=== PATIENT | female | born 1970 | race Caucasian/White ===

== ENCOUNTER → 2021-01-22 | Outpatient (CLI) | payer OTHER, MEDICAID ==
--- NOTE | 2021-01-22 11:41 | REP ---
INDICATION: ACHILLES BURSITIS OF LEFT LOWER EXTREMITY COMPARISON: None. TECHNIQUE: Axial and lateral views of the left calcaneus FINDINGS: Calcaneus, joint spaces, and surrounding osseous structures appear normal. Surrounding soft tissues are unremarkable. No soft tissue calcifications are identified. IMPRESSION: Essentially normal evaluation of the calcaneus and surrounding soft tissues.. <Electronically signed by Harry Wilde > 01/22/21 [id number]
--- NOTE | 2021-01-22 11:53 | REP ---
INDICATION: ACHILLES BURSITIS OF LEFT LOWER EXTREMITY. COMPARISON: None. TECHNIQUE: Four views FINDINGS: The joint spaces are symmetric and relatively well maintained. There is no acute fracture or destructive osseous lesion. There is a minimal plantar calcaneal heel spur. IMPRESSION: No acute abnormality is noted. Findings as described above. If Achilles tendinitis or tendinopathy/tendinosis is of clinical concern then consider follow-up with an MRI. <Electronically signed by Tyrone Corbett > 01/22/21 [id number]
[2021-01-22 13:24] LABS: BASO % 0.6 % (0.0-1.0); EOS # 0.1 10^3/uL (0.0-0.5); EOS % 2.2 % (0.0-3.0); HEMATOCRIT 41.2 % (36.0-47.0); HEMOGLOBIN 13.2 g/dl (12.0-15.5); LYMPH # 1.4 10^3/uL (1.5-5.0); LYMPH % 25.3 % (24.0-44.0); MEAN CORPUSCULAR HEMOGLOBIN 27.7 pg (27.0-33.0); MEAN CORPUSCULAR VOLUME 86.6 fl (80.0-96.0); MONO # 0.4 10^3/uL (0.0-0.8); MONO % 8.1 % (2.0-8.0); NEUTROPHILS # 3.4 10^3/uL (1.5-8.5); NEUTROPHILS % 63.4 % (36.0-66.0); PLATELET COUNT, AUTOMATED 163 10^3/uL (150-450); RED BLOOD COUNT 4.76 10^6/uL (4.00-5.40); WHITE BLOOD COUNT 5.4 10^3/uL (4.0-10.0)
[2021-01-22 13:27] LABS: APPEARANCE, URINE CLEAR (CLEAR); BACTERIA, URINE AUTO NEGATIVE (NEGATIVE); BILIRUBIN, URINE AUTO NEGATIVE (NEGATIVE); BLOOD, URINE BLOOD NEGATIVE (NEGATIVE); COLOR, URINE YELLOW (YELLOW); GLUCOSE, URINE (UA) AUTO NEGATIVE (NEGATIVE); KETONE, URINE AUTO NEGATIVE (NEGATIVE); LEUKOCYTE ESTERASE, URINE AUTO NEGATIVE (NEGATIVE); NITRITE, URINE AUTO NEGATIVE (NEGATIVE); PROTEIN, URINE AUTO NEGATIVE (NEGATIVE); RBC, URINE AUTO 0 /HPF (0-3); SPECIFIC GRAVITY URINE AUTO 1.006 (1.002-1.035); SQUAMOUS EPITHELIAL CELL UR AU 0 /HPF (0-6); UROBILINOGEN, URINE AUTO 0.2 mg/dL (0.0-2.0); WBC, URINE AUTO 0 /HPF (0-3)
[2021-01-22 14:49] LABS: ALT/SGPT 85 U/L (12-78); BILIRUBIN,TOTAL 0.5 MG/DL (0.2-1.0); BLOOD UREA NITROGEN 5 MG/DL (7-18); CALCIUM LEVEL 10.1 MG/DL (8.5-10.1); CARBON DIOXIDE LEVEL 26 MEQ/L (21-32); CHLORIDE LEVEL 110 MEQ/L (98-107); CHOLESTEROL LEVEL 225 MG/DL (<200); CREATININE FOR GFR 0.62 MG/DL (0.55-1.30); FREE T4 0.77 NG/DL (0.76-1.46); GLOMERULAR FILTRATION RATE > 60.0 (>51); GLUCOSE, FASTING 98 MG/DL (70-100); HDL CHOLESTEROL 50 MG/DL (>40); LDL CHOLESTEROL 152 MG/DL (<100); NON-HDL-C 175 MG/DL; POTASSIUM SERUM 4.3 MEQ/L (3.5-5.1); SODIUM LEVEL 141 MEQ/L (136-145); TRIGLYCERIDES LEVEL 114 MG/DL (<150)
[2021-01-22 15:11] LABS: HEMOGLOBIN A1c 5.8 %
== END ==
LOC: M PLALAB 10:38
PROVIDERS: ATTEND Physician Assistant Medical
DX: Z86.19 Personal history of other infectious and parasitic diseases (principal); Z13.1 Encounter for screening for diabetes mellitus; E03.9 Hypothyroidism, unspecified; M77.32 Calcaneal spur, left foot

== ENCOUNTER → 2021-02-14 | Outpatient (CLI) | payer OTHER ==
--- NOTE | 2021-02-14 14:17 | REPMRS ---
Patient History The patient states she has not had a clinical breast exam in over a year. Family history of endometrial cancer at age 22 in mother, colorectal cancer in paternal grandmother, ovarian cancer in paternal aunt, endometrial cancer in paternal aunt. Patient states no breast complaints today. Patient has signed MRS History Sheet. Digital Woman Screen Mammo: February 14, 2021 - Exam #: [id number] Bilateral CC and MLO view(s) were taken. Technologist: Marcella Jimenez, Technologist Prior study comparison: July 10, 2010, bilateral digital mammo screening bilat, performed at [facility]. June 07, 2009, digital mammo diagnostic bilateral, performed at [facility]. FINDINGS: There are scattered fibroglandular densities. The Volpara volumetric breast density category is:B. There has been no change in the appearance of the mammogram from the prior studies. There is a mild amount of scattered fibroglandular density which is fairly symmetric. There is no interval development of dominant mass, architectural distortion, or grouped microcalcification suggestive of malignancy. 3-D tomosynthesis shows no additional findings. Assessment: BI-RADS/ACR category 1 mammogram. Negative Mammogram. Recommendation Routine screening mammogram of both breasts in 1 year (for women over age 40). This patient's [facility] Lifetime Breast Cancer Risk is estimated at 9.0 %. This mammogram was interpreted with the aid of an FDA-approved computer-aided dectection system. Electronically Signed By: Kade Goode MD 02/14/21 [id number]
== END ==
LOC: M WHC 13:13
PROVIDERS: ATTEND Physician Assistant Medical
DX: Z12.31 Encounter for screening mammogram for malignant neoplasm of breast (principal); Z80.49 Family history of malignant neoplasm of other genital organs; Z80.8 Family history of malignant neoplasm of other organs or systems

== ENCOUNTER → 2021-03-01 | Outpatient (CLI) | payer OTHER ==
--- NOTE | 2021-03-01 15:10 | REP ---
INDICATION: ACHILLES TENDINITIS, LEFT LEG. COMPARISON: None. TECHNIQUE: Sagittal T2 fat suppressed and proton density. Coronal proton density, STIR and fat suppressed proton density. Axial fat suppressed proton density and T1. FINDINGS: There is mild focal enlargement of the distal Achilles tendon measuring 8 mm in its greatest AP dimension and 1.7 cm in its greatest with. Just proximal to this the Achilles tendon measures 5 mm in its AP dimension and 1.2 cm in with. No abnormal signal is seen within the Achilles tendon. The soft tissues surrounding the Achilles tendon are normal. The remainder of the imaged flexor and extensor tendons appear to be intact and of normal appearing low signal throughout. The intrinsic foot ligaments appear to be intact and of normal appearing low signal throughout. The marrow signal is within normal limits. The plantar soft tissues are within normal limits. The subtalar joints are within normal limits. There is no evidence of a joint effusion. The chondral surfaces are relatively smooth. There is no evidence of a mass or mass effect. IMPRESSION: Likely a small focal area of fibrosis involving the distal Achilles tendon as described above. There is no evidence of a tear. <Electronically signed by Tyrone Corbett > 03/01/21 [id number]
== END ==
LOC: M PLAIMG 12:35
PROVIDERS: ATTEND Physician Assistant Medical
DX: M76.62 Achilles tendinitis, left leg (principal)

== ENCOUNTER → 2021-03-06 | Outpatient (CLI) | payer OTHER ==
[2021-03-06 14:02] LABS: INR 0.98; PROTHROMBIN TIME 13.4 SECONDS (12.7-14.5)
[2021-03-06 14:03] LABS: PARTIAL THROMBOPLASTIN TIME 30.3 SECONDS (25.9-37.0)
[2021-03-06 14:32] LABS: HEPATITIS C VIRUS ABY INDEX 0.1 INDEX (<0.8)
[2021-03-06 14:33] LABS: HEPATITIS A ANTIBODY IGM NEGATIVE (NEGATIVE)
[2021-03-06 19:19] LABS: HEPATITIS B SURFACE ANTIGEN NEGATIVE (NEGATIVE)
== END ==
LOC: M PLALAB 09:30
PROVIDERS: ATTEND Physician Assistant Medical
DX: R79.89 Other specified abnormal findings of blood chemistry (principal); E03.9 Hypothyroidism, unspecified

== ENCOUNTER → 2021-03-16 | Outpatient (CLI) | payer OTHER ==
--- NOTE | 2021-03-16 09:52 | REP ---
INDICATION: ELEVATED LFT'S. FINDINGS: Multiple ultrasonographic images of the liver show diffuse increase echoes throughout the hepatic parenchyma without evidence of a mass or ductal dilatation. The maximal hepatic dimension at the midclavicular line is 21.4 cm. The common bile duct measures between 6 and 7 mm in its greatest transverse dimension. Multiple ultrasonographic images of the gallbladder show multiple echogenic foci within the gallbladder lumen which casts acoustic shadows. There is no gallbladder wall thickening or pericholecystic edema. Images of the pancreatic region show no gross abnormality. The imaged portion of the right kidney is unremarkable. IMPRESSION: Hepatomegaly with fatty infiltration. Cholelithiasis. Accredited by the [employer] in General Ultrasound. <Electronically signed by Tyrone Corbett > 03/16/21 [id number]
== END ==
LOC: M RAD 07:35
PROVIDERS: ATTEND Physician Assistant Medical
DX: R79.89 Other specified abnormal findings of blood chemistry (principal); K76.0 Fatty (change of) liver, not elsewhere classified; K80.20 Calculus of gallbladder without cholecystitis without obstruction

== ENCOUNTER → 2021-03-20 | Outpatient (CLI) | payer OTHER ==
[2021-03-22 14:09] LABS: ANA (HEP2) Negative (.); ANTI-MITOCHONDRIAL ANTIBODY <20.0 Units (0.0-20.0); ANTINUCLEAR ANTIBODIES DIRECT Negative (Negative); TRANSFERRIN 325 mg/dL (192-364)
== END ==
LOC: M PLALAB 08:17
PROVIDERS: ATTEND Physician Assistant Medical
DX: K75.81 Nonalcoholic steatohepatitis (NASH) (principal)

== ENCOUNTER → 2021-04-27 | Outpatient (CLI) | payer OTHER | LOC: M LAB 06:25 | PROVIDERS: ATTEND Surgery | DX: R73.03 Prediabetes (principal) ==

== ENCOUNTER → 2021-05-02 | Outpatient (REF) | payer OTHER, MEDICAID | LOC: M SFHCWAGY 14:05 | PROVIDERS: ATTEND Physician Assistant Medical | DX: B07.9 Viral wart, unspecified (principal) ==

== ENCOUNTER → 2021-05-07 | Outpatient (CLI) | payer OTHER, MEDICAID ==
[2021-05-07 12:32] LABS: FREE T4 0.82 NG/DL (0.76-1.46); THYROID STIMULATING HORMONE 6.19 uIU/ML (0.358-3.740)
== END ==
LOC: M PLALAB 09:10
PROVIDERS: ATTEND Physician Assistant Medical
DX: E03.9 Hypothyroidism, unspecified (principal)

== ENCOUNTER → 2021-06-15 | Outpatient (CLI) | payer MEDICAID, OTHER ==
[~2021-06-15] MED LIST: ALBU8.5H; EPIN0.3I11; GABA600T4; LEVO50TA5; OMEP-218; TIZA2CAP; TRAM50TA2
== END ==
LOC: M LABSMTC 09:27
PROVIDERS: ATTEND Anesthesiology
DX: Z01.812 Encounter for preprocedural laboratory examination (principal); Z20.822 Contact with and (suspected) exposure to COVID-19

== ENCOUNTER 2021-06-20 06:43 | Day surgery (SDC) | payer OTHER ==
[~2021-06-20] VITALS: Ht 162.6 cm; Wt 94.3 kg
[~2021-06-20 06:43] MED LIST changes: +OMEP-173; -OMEP-218
[2021-06-20] MEDS ORDERED: propofoL 500 MG/50 ML VIAL As Ordered ONE (07:37)
[2021-06-20] MEDS ORDERED: fentaNYL 100 MCG/2 ML INJECTION As Ordered ONE (07:37)
[2021-06-20] MEDS ORDERED: LIDOCAINE 2% 100MG/5ML SDV (FOR ANES.) As Ordered ONE (07:37)
[2021-06-20] MEDS ORDERED: NS 1,000 ML IV ONE (07:55)
[2021-06-20 08:31] VITALS: BP 140/77
== END 2021-06-20 08:33 | disposition home or self-care (01) ==
LOC: M OPP 06:43
PROVIDERS: ATTEND Internal Medicine Gastroenterology
DX: Z12.11 Encounter for screening for malignant neoplasm of colon (principal); K64.0 First degree hemorrhoids; R12 Heartburn; E66.9 Obesity, unspecified; E03.9 Hypothyroidism, unspecified; Z88.6 Allergy status to analgesic agent; Z88.5 Allergy status to narcotic agent; Z88.1 Allergy status to other antibiotic agents; Z79.899 Other long term (current) drug therapy
CPT/HCPCS: 43239; 45378; 88305; J3010

== ENCOUNTER → 2021-07-10 | Outpatient (CLI) | payer OTHER ==
[~2021-07-10] MED LIST changes: -OMEP-173; +OMEP-218
[2021-07-10 14:14] LABS: FREE T4 0.95 NG/DL (0.76-1.46); THYROID STIMULATING HORMONE 3.45 uIU/ML (0.358-3.740)
== END ==
LOC: M PLALAB 11:04
PROVIDERS: ATTEND Physician Assistant Medical
DX: E03.9 Hypothyroidism, unspecified (principal)

== ENCOUNTER → 2021-08-16 | Outpatient (REF) | payer OTHER, MEDICAID ==
[~2021-08-16] MED LIST changes: +OMEP-173; -OMEP-218
== END ==
LOC: M SFHCWAGY 15:08
PROVIDERS: ATTEND Obstetrics & Gynecology
DX: Z12.4 Encounter for screening for malignant neoplasm of cervix (principal)

== ENCOUNTER → 2021-08-17 | Outpatient (CLI) | payer OTHER, MEDICAID | LOC: M WHC 07:55 | PROVIDERS: ATTEND Obstetrics & Gynecology | DX: N83.202 Unspecified ovarian cyst, left side (principal) ==

== ENCOUNTER → 2021-10-12 | Outpatient (CLI) | payer OTHER, MEDICAID ==
[2021-10-12 14:16] LABS: FREE T4 1.33 NG/DL (0.76-1.46); THYROID STIMULATING HORMONE 0.113 uIU/ML (0.358-3.740)
== END ==
LOC: M PLALAB 11:07
PROVIDERS: ATTEND Physician Assistant Medical
DX: E03.9 Hypothyroidism, unspecified (principal)

== ENCOUNTER 2021-10-16 17:35 | Emergency (ER) | payer MEDICAID, OTHER ==
[~2021-10-16] VITALS: Ht 162.6 cm; Wt 94.1 kg
[2021-10-16] MEDS ORDERED: AMLO1TAB24 (17:51)
[2021-10-16] MEDS ORDERED: NIFEdipine 10 MG CAP PO ONE (19:05)
[2021-10-16] MEDS ORDERED: METOCLOPRAMIDE 10MG TAB PO ONE (19:15)
[2021-10-16 19:22] LABS: BASO % 0.3 % (0.0-1.0); EOS # 0.1 10^3/uL (0.0-0.5); EOS % 1.9 % (0.0-3.0); HEMOGLOBIN 14.3 g/dl (12.0-15.5); LYMPH # 2.1 10^3/uL (1.5-5.0); LYMPH % 29.4 % (24.0-44.0); MEAN CORPUSCULAR HEMOGLOBIN 27.2 pg (27.0-33.0); MEAN CORPUSCULAR HGB CONC 33.3 g/dl (32.0-36.5); MEAN CORPUSCULAR VOLUME 81.9 fl (80.0-96.0); MONO # 0.6 10^3/uL (0.0-0.8); MONO % 8.4 % (2.0-8.0); NEUTROPHILS # 4.2 10^3/uL (1.5-8.5); NEUTROPHILS % 59.9 % (36.0-66.0); PLATELET COUNT, AUTOMATED 188 10^3/uL (150-450); RED BLOOD COUNT 5.25 10^6/uL (4.00-5.40)
[2021-10-16 19:50] LABS: CK-MB VALUE MASS 1.3 NG/ML (<3.6); MB/CK RELATIVE INDEX 2.45 (< OR =4)
[2021-10-16 19:51] LABS: ALBUMIN 4.4 GM/DL (3.2-5.2); ALT/SGPT 78 U/L (12-78); BILIRUBIN,TOTAL 0.5 MG/DL (0.2-1.0); BLOOD UREA NITROGEN 8 MG/DL (7-18); CALCIUM LEVEL 10.4 MG/DL (8.5-10.1); CARBON DIOXIDE LEVEL 28 MEQ/L (21-32); CHLORIDE LEVEL 111 MEQ/L (98-107); CREATININE FOR GFR 0.65 MG/DL (0.55-1.30); GLOMERULAR FILTRATION RATE > 60.0 (>51); GLUCOSE, FASTING 105 MG/DL (70-100); POTASSIUM SERUM 4.1 MEQ/L (3.5-5.1); SODIUM LEVEL 142 MEQ/L (136-145); TOTAL PROTEIN 7.4 GM/DL (6.4-8.2)
[2021-10-16 20:30] VITALS: BP 162/74
== END 2021-10-16 20:41 | disposition home or self-care (01) ==
LOC: M ED 17:35
DX: I10 Essential (primary) hypertension (principal); E07.9 Disorder of thyroid, unspecified; K58.9 Irritable bowel syndrome, unspecified; Z79.899 Other long term (current) drug therapy; Z79.890 Hormone replacement therapy; Z88.5 Allergy status to narcotic agent; Z88.8 Allergy status to other drugs, medicaments and biological substances; J30.89 Other allergic rhinitis

== ENCOUNTER → 2021-10-24 | Outpatient (CLI) | payer OTHER ==
[~2021-10-24] MED LIST changes: +AMLO1TAB24
[2021-10-24 14:41] LABS: BLOOD UREA NITROGEN 12 MG/DL (7-18); CALCIUM LEVEL 10.4 MG/DL (8.5-10.1); CARBON DIOXIDE LEVEL 30 MEQ/L (21-32); CHLORIDE LEVEL 109 MEQ/L (98-107); CHOLESTEROL LEVEL 209 MG/DL (<200); CHOLESTEROL RISK RATIO 4.543 (<5); CREATININE FOR GFR 0.74 MG/DL (0.55-1.30); GLOMERULAR FILTRATION RATE > 60.0 (>51); GLUCOSE, FASTING 92 MG/DL (70-100); HDL CHOLESTEROL 46 MG/DL (>40); LDL CHOLESTEROL 140 MG/DL (<100); NON-HDL-C 163 MG/DL; POTASSIUM SERUM 3.9 MEQ/L (3.5-5.1); SODIUM LEVEL 143 MEQ/L (136-145); TRIGLYCERIDES LEVEL 117 MG/DL (<150)
== END ==
LOC: M PLALAB 10:33
PROVIDERS: ATTEND Physician Assistant Medical
DX: Z13.220 Encounter for screening for lipoid disorders (principal); I16.0 Hypertensive urgency

== ENCOUNTER → 2021-11-16 | Outpatient (CLI) | payer OTHER | LOC: M RAD 06:31 | PROVIDERS: ATTEND Physician Assistant Medical | DX: I16.0 Hypertensive urgency (principal); N28.1 Cyst of kidney, acquired ==

== ENCOUNTER → 2021-12-10 | Outpatient (REF) | payer OTHER ==
[2021-12-13 20:08] LABS: METANEPHRINE TOTAL URINE 71 ug/L (Undefined); METANEPHRINE URINE 117 ug/24 hr (36-209); NORMETANEPHRINE TOTAL URINE 248 ug/L (Undefined); NORMETANEPHRINE URINE 409 ug/24 hr (131-612)
== END ==
LOC: M SFHCWAGY 11:36
PROVIDERS: ATTEND Physician Assistant Medical
DX: R09.89 Other specified symptoms and signs involving the circulatory and respiratory systems (principal)

== ENCOUNTER → 2022-01-23 | Outpatient (CLI) | payer OTHER, MEDICAID ==
[2022-01-23 10:12] LABS: BASO % 0.4 % (0.0-1.0); EOS # 0.2 10^3/uL (0.0-0.5); EOS % 2.6 % (0.0-3.0); HEMATOCRIT 39.9 % (36.0-47.0); HEMOGLOBIN 13.4 g/dl (12.0-15.5); LYMPH # 1.8 10^3/uL (1.5-5.0); LYMPH % 23.2 % (24.0-44.0); MEAN CORPUSCULAR HEMOGLOBIN 27.4 pg (27.0-33.0); MEAN CORPUSCULAR HGB CONC 33.6 g/dl (32.0-36.5); MEAN CORPUSCULAR VOLUME 81.6 fl (80.0-96.0); MONO # 0.6 10^3/uL (0.0-0.8); NEUTROPHILS % 65.5 % (36.0-66.0); PLATELET COUNT, AUTOMATED 247 10^3/uL (150-450); RED BLOOD COUNT 4.89 10^6/uL (4.00-5.40); WHITE BLOOD COUNT 7.7 10^3/uL (4.0-10.0)
[2022-01-23 10:30] LABS: HEMOGLOBIN A1c 5.2 %
[2022-01-23 10:43] LABS: ALT/SGPT 41 U/L (12-78); BILIRUBIN,TOTAL 0.5 MG/DL (0.2-1.0); BLOOD UREA NITROGEN 10 MG/DL (7-18); CALCIUM LEVEL 10.9 MG/DL (8.5-10.1); CARBON DIOXIDE LEVEL 25 MEQ/L (21-32); CHLORIDE LEVEL 110 MEQ/L (98-107); CHOLESTEROL LEVEL 158 MG/DL (<200); CHOLESTEROL RISK RATIO 6.076 (<5); CREATININE FOR GFR 0.78 MG/DL (0.55-1.30); FREE T4 1.19 NG/DL (0.76-1.46); GLOMERULAR FILTRATION RATE > 60.0 (>51); GLUCOSE, FASTING 83 MG/DL (70-100); HDL CHOLESTEROL 26 MG/DL (>40); LDL CHOLESTEROL 107 MG/DL (<100); NON-HDL-C 132 MG/DL; POTASSIUM SERUM 3.8 MEQ/L (3.5-5.1); SODIUM LEVEL 143 MEQ/L (136-145); TOTAL PROTEIN 6.7 GM/DL (6.4-8.2); TRIGLYCERIDES LEVEL 127 MG/DL (<150)
[2022-01-23 11:20] LABS: TOTAL 25(OH) VITAMIN D 22.3 NG/ML (30.0-100.0)
== END ==
LOC: M PLALAB 08:59
PROVIDERS: ATTEND Physician Assistant Medical
DX: R79.89 Other specified abnormal findings of blood chemistry (principal); E03.9 Hypothyroidism, unspecified; E83.52 Hypercalcemia; Z13.1 Encounter for screening for diabetes mellitus; Z13.220 Encounter for screening for lipoid disorders

== ENCOUNTER → 2022-04-25 | Outpatient (CLI) | payer OTHER ==
[2022-04-25 16:47] LABS: BASO % 0.4 % (0.0-1.0); EOS # 0.1 10^3/uL (0.0-0.5); EOS % 1.7 % (0.0-3.0); HEMATOCRIT 39.1 % (36.0-47.0); HEMOGLOBIN 12.6 g/dl (12.0-15.5); LYMPH # 1.5 10^3/uL (1.5-5.0); LYMPH % 28.1 % (24.0-44.0); MEAN CORPUSCULAR HEMOGLOBIN 27.5 pg (27.0-33.0); MEAN CORPUSCULAR HGB CONC 32.2 g/dl (32.0-36.5); MEAN CORPUSCULAR VOLUME 85.4 fl (80.0-96.0); MONO # 0.4 10^3/uL (0.0-0.8); MONO % 8.4 % (2.0-8.0); NEUTROPHILS # 3.2 10^3/uL (1.5-8.5); NEUTROPHILS % 61.2 % (36.0-66.0); PLATELET COUNT, AUTOMATED 168 10^3/uL (150-450); RED BLOOD COUNT 4.58 10^6/uL (4.00-5.40); WHITE BLOOD COUNT 5.3 10^3/uL (4.0-10.0)
[2022-04-25 17:30] LABS: ALT/SGPT 68 U/L (12-78); BILIRUBIN,TOTAL 0.6 MG/DL (0.2-1.0); BLOOD UREA NITROGEN 6 MG/DL (7-18); CARBON DIOXIDE LEVEL 29 MEQ/L (21-32); CHLORIDE LEVEL 108 MEQ/L (98-107); CREATININE FOR GFR 0.52 MG/DL (0.55-1.30); FERRITIN 109 NG/ML (8-252); GLOMERULAR FILTRATION RATE > 60.0 (>51); GLUCOSE, FASTING 73 MG/DL (70-100); IRON (FE) 66 UG/DL (50-170); PERCENT SATURATION 19.6 % (13.2-45.0); POTASSIUM SERUM 3.9 MEQ/L (3.5-5.1); SODIUM LEVEL 141 MEQ/L (136-145); TOTAL IRON BINDING CAPACITY 336 UG/DL (250-450); TOTAL PROTEIN 6.7 GM/DL (6.4-8.2)
[2022-04-27 14:07] LABS: ANTINUCLEAR ANTIBODIES DIRECT Negative (Negative); LIVER-KIDNEY MICROSOMAL ABY <20.1 Units (0.0-20.0); TISSUE TRANSGLUTAMINASE IgA <2 U/mL (0-3)
== END ==
LOC: M LAB 15:00
PROVIDERS: ATTEND Internal Medicine Gastroenterology
DX: R94.5 Abnormal results of liver function studies (principal)

== ENCOUNTER → 2022-05-27 | Outpatient (CLI) | payer OTHER ==
[2022-05-27 11:39] LABS: FREE T4 1.17 NG/DL (0.76-1.46); THYROID STIMULATING HORMONE 0.656 uIU/ML (0.358-3.740)
== END ==
LOC: M LAB 09:57
PROVIDERS: ATTEND Physician Assistant Medical
DX: E03.9 Hypothyroidism, unspecified (principal)

== ENCOUNTER → 2022-06-11 | Outpatient (REF) | payer OTHER, MEDICAID ==
[2022-06-11 13:59] LABS: APPEARANCE, URINE MANUAL HAZY (CLEAR); COLOR, URINE MANUAL YELLOW (YELLOW); SPECIFIC GRAVITY,URINE MANUAL 1.024 (1.002-1.035)
[2022-06-11 14:00] LABS: BILIRUBIN, URINE MANUAL NEGATIVE (NEGATIVE); GLUCOSE, URINE (UA) MANUAL NEGATIVE (NEGATIVE); KETONE, URINE MANUAL 3+ mg/dL (NEGATIVE); UROBILINOGEN, URINE MANUAL NORMAL (NORMAL)
[2022-06-11 14:01] LABS: BLOOD URINE MANUAL NEGATIVE (NEGATIVE); LEUKOCYTE ESTERASE, URINE MAN TRACE (NEGATIVE); NITRITE, URINE MANUAL NEGATIVE (NEGATIVE); PROTEIN, URINE MANUAL TRACE mg/dL (NEGATIVE)
[2022-06-11 14:17] LABS: BACTERIA, URINE SMALL AMOUNT; RBC, URINE NONE SEEN /hpf (0-3); SQUAMOUS EPITHELIAL CELL URINE LARGE AMOUNT /hpf (SMALL AMT)
[2022-06-11 14:19] LABS: CALCIUM OXALATE CRYSTALS,URINE LARGE AMOUNT /hpf; HYALINE CAST, URINE NONE SEEN /lpf (0-1); MUCUS, URINE LARGE AMOUNT (NEGATIVE)
== END ==
LOC: M SFHCPLAZ 12:59
PROVIDERS: ATTEND Physician Assistant Medical
DX: R30.0 Dysuria (principal)

== ENCOUNTER → 2022-06-24 | Outpatient (REF) | payer OTHER, MEDICAID | LOC: M SFHCPLAZ 13:07 | PROVIDERS: ATTEND Physician Assistant Medical | DX: L82.1 Other seborrheic keratosis (principal) ==

== ENCOUNTER → 2022-07-02 | Outpatient (CLI) | payer OTHER ==
[2022-07-02 11:32] LABS: BASO % 0.4 % (0.0-1.0); EOS # 0.1 10^3/uL (0.0-0.5); EOS % 1.3 % (0.0-3.0); HEMATOCRIT 38.5 % (36.0-47.0); HEMOGLOBIN 12.5 g/dl (12.0-15.5); LYMPH # 1.6 10^3/uL (1.5-5.0); LYMPH % 29.3 % (24.0-44.0); MEAN CORPUSCULAR HEMOGLOBIN 27.1 pg (27.0-33.0); MEAN CORPUSCULAR HGB CONC 32.5 g/dl (32.0-36.5); MEAN CORPUSCULAR VOLUME 83.5 fl (80.0-96.0); MONO # 0.4 10^3/uL (0.0-0.8); MONO % 7.2 % (2.0-8.0); NEUTROPHILS # 3.3 10^3/uL (1.5-8.5); NEUTROPHILS % 61.4 % (36.0-66.0); PLATELET COUNT, AUTOMATED 174 10^3/uL (150-450); RED BLOOD COUNT 4.61 10^6/uL (4.00-5.40); WHITE BLOOD COUNT 5.4 10^3/uL (4.0-10.0)
[2022-07-02 11:47] LABS: HEMOGLOBIN A1c 4.6 % (4.0-6.0)
[2022-07-02 12:01] LABS: HEMATOCRIT 38.3 % (36.0-47.0)
[2022-07-02 12:22] LABS: ALKALINE PHOSPHATASE 121 U/L (46-116); ALT/SGPT 47 U/L (7.0-40); AST/SGOT 34 U/L (<34); BILIRUBIN,TOTAL 0.5 MG/DL (0.3-1.2); BLOOD UREA NITROGEN 12 MG/DL (9-23); CALCIUM LEVEL 11.1 MG/DL (8.5-10.1); CARBON DIOXIDE LEVEL 27 MMOL/L (20-31); CHLORIDE LEVEL 108 MMOL/L (98-107); GLOMERULAR FILTRATION RATE > 60.0 (>51); GLUCOSE, FASTING 85 MG/DL (60-100); IRON (FE) 68 UG/DL (50-170); PERCENT SATURATION 19.7 % (13.2-45.0); PHOSPHORUS LEVEL 3.2 MG/DL (2.5-4.9); POTASSIUM SERUM 3.9 MMOL/L (3.5-5.1); SODIUM LEVEL 142 MMOL/L (136-145); TOTAL IRON BINDING CAPACITY 345 UG/DL (250-425); TOTAL PROTEIN 6.5 G/DL (5.7-8.2)
[2022-07-02 12:24] LABS: FERRITIN 88.1 NG/ML (7.3-270.7)
[2022-07-02 12:25] LABS: TOTAL 25(OH) VITAMIN D 56.9 NG/ML (20.0-100.0); VITAMIN B12 LEVEL 868 PG/ML (211-911)
== END ==
LOC: M LAB 09:56
PROVIDERS: ATTEND Physician Assistant Surgical
DX: K91.2 Postsurgical malabsorption, not elsewhere classified (principal)

== ENCOUNTER 2022-10-11 11:00 | Emergency (ER) | payer MEDICAID, OTHER ==
[~2022-10-11] VITALS: Ht 162.6 cm; Wt 56.2 kg
[2022-10-11 11:47] LABS: BASO % 0.2 % (0.0-1.0); EOS # 0.1 10^3/uL (0.0-0.5); EOS % 1.2 % (0.0-3.0); HEMATOCRIT 39.1 % (36.0-47.0); HEMOGLOBIN 12.7 g/dl (12.0-15.5); LYMPH # 1.9 10^3/uL (1.5-5.0); LYMPH % 28.1 % (24.0-44.0); MEAN CORPUSCULAR HGB CONC 32.5 g/dl (32.0-36.5); MEAN CORPUSCULAR VOLUME 83.2 fl (80.0-96.0); MONO # 0.4 10^3/uL (0.0-0.8); NEUTROPHILS # 4.3 10^3/uL (1.5-8.5); NEUTROPHILS % 64.2 % (36.0-66.0); PLATELET COUNT, AUTOMATED 245 10^3/uL (150-450); WHITE BLOOD COUNT 6.7 10^3/uL (4.0-10.0)
[2022-10-11 12:22] LABS: LIPASE 58 U/L (12-53)
[2022-10-11 12:27] LABS: ALBUMIN 4.2 G/DL (3.2-5.2); ALKALINE PHOSPHATASE 119 U/L (46-116); ALT/SGPT 50 U/L (7.0-40); AST/SGOT 36 U/L (<34); BILIRUBIN,DIRECT 0.2 MG/DL (<0.4); BILIRUBIN,TOTAL 0.7 MG/DL (0.3-1.2)
[2022-10-11] MEDS ORDERED: GI COCKTAIL 50ML BTL(HYOSCYAMINE/MAALOX/LIDOCAINE VISCOUS)(1:3:1) PO ONE (15:15)
[2022-10-11] MEDS ORDERED: NS 1,000 ML IV ONE (15:15)
[2022-10-11] MEDS: GASTROGRAFIN SOLUTION 30ML PO SCH ×2 (15:45→16:44)
[2022-10-11] MEDS ORDERED: ONDANSETRON 4MG 2ML VIAL IV ONE (16:10)
[2022-10-11 16:20] LABS: INR 1.04; PROTHROMBIN TIME 13.8 SECONDS (12.5-14.5)
[2022-10-11 16:21] LABS: PARTIAL THROMBOPLASTIN TIME 27.6 SECONDS (24.8-34.2)
[2022-10-11 16:33] LABS: AMYLASE 61 U/L (30-118); CPK CREATINE PHOSPHOKINASE 31 U/L (34-145)
[2022-10-11 16:40] LABS: CK-MB VALUE MASS < 1.0 NG/ML (<3.6); MB/CK RELATIVE INDEX 3.22 (< OR =4)
[2022-10-11] MEDS ORDERED: ISOVUE-370 76% 100ML VIAL As Ordered ONE (17:18)
[2022-10-11 17:34] LABS: TOTAL PROTEIN 6.7 G/DL (5.7-8.2)
[2022-10-11 19:24] VITALS: BP 124/77
[2022-10-11] MEDS ORDERED: MIRA3350 PO (19:43)
[2022-10-11] MEDS ORDERED: ONDA4TAB6 PO (19:43)
== END 2022-10-11 19:59 | disposition home or self-care (01) ==
LOC: M ED 11:00
DX: K59.00 Constipation, unspecified (principal); R10.9 Unspecified abdominal pain; Z98.84 Bariatric surgery status; K21.9 Gastro-esophageal reflux disease without esophagitis; M54.9 Dorsalgia, unspecified; K58.9 Irritable bowel syndrome, unspecified; Z88.8 Allergy status to other drugs, medicaments and biological substances; Z88.6 Allergy status to analgesic agent; Z88.5 Allergy status to narcotic agent
CPT/HCPCS: 71045; 71275; 74177; 76705; 80047; 80076; 81001; 82150; 82550; 82553; 83605; 83690; 85025; 85610; 85730; 93005; 93041; 96374; 99284; J2405; Q9963; Q9967

== ENCOUNTER → 2022-10-17 | Outpatient (CLI) | payer OTHER ==
[~2022-10-17] MED LIST changes: +MIRA3350 PO; +ONDA4TAB6 PO
[2022-10-17 13:22] LABS: BASO % 0.5 % (0.0-1.0); EOS # 0.1 10^3/uL (0.0-0.5); HEMATOCRIT 36.7 % (36.0-47.0); HEMOGLOBIN 11.8 g/dl (12.0-15.5); LYMPH # 1.8 10^3/uL (1.5-5.0); LYMPH % 29.5 % (24.0-44.0); MEAN CORPUSCULAR HEMOGLOBIN 27.4 pg (27.0-33.0); MEAN CORPUSCULAR HGB CONC 32.2 g/dl (32.0-36.5); MEAN CORPUSCULAR VOLUME 85.2 fl (80.0-96.0); MONO # 0.5 10^3/uL (0.0-0.8); MONO % 7.7 % (2.0-8.0); NEUTROPHILS # 3.6 10^3/uL (1.5-8.5); PLATELET COUNT, AUTOMATED 191 10^3/uL (150-450); RED BLOOD COUNT 4.31 10^6/uL (4.00-5.40)
[2022-10-17 13:41] LABS: INR 0.98; PROTHROMBIN TIME 13.2 SECONDS (12.5-14.5)
[2022-10-17 13:42] LABS: PARTIAL THROMBOPLASTIN TIME 29.9 SECONDS (24.8-34.2)
[2022-10-17 13:51] LABS: ALBUMIN 3.9 G/DL (3.2-5.2); ALKALINE PHOSPHATASE 108 U/L (46-116); ALT/SGPT 46 U/L (7.0-40); AST/SGOT 35 U/L (<34); BILIRUBIN,TOTAL 0.4 MG/DL (0.3-1.2); BLOOD UREA NITROGEN 12 MG/DL (9-23); CALCIUM LEVEL 10.8 MG/DL (8.5-10.1); CARBON DIOXIDE LEVEL 30 MMOL/L (20-31); CHLORIDE LEVEL 110 MMOL/L (98-107); CREATININE FOR GFR 0.59 MG/DL (0.55-1.30); GLOMERULAR FILTRATION RATE > 60.0 (>51); GLUCOSE, FASTING 82 MG/DL (60-100); POTASSIUM SERUM 4.4 MMOL/L (3.5-5.1); SODIUM LEVEL 144 MMOL/L (136-145); TOTAL PROTEIN 6.1 G/DL (5.7-8.2)
== END ==
LOC: M LAB 12:22
PROVIDERS: ATTEND Internal Medicine Gastroenterology
DX: R94.5 Abnormal results of liver function studies (principal)

== ENCOUNTER → 2022-11-06 | Outpatient (CLI) | payer OTHER ==
[2022-11-06 10:43] LABS: CALCIUM LEVEL 10.7 MG/DL (8.5-10.1); FREE T4 1.01 NG/DL (0.89-1.76)
[2022-11-06 10:44] LABS: THYROID STIMULATING HORMONE 2.211 uIU/ML (0.55-4.78)
[2022-11-06 10:46] LABS: PTH INTACT 175.8 PG/ML (18.5-88.0)
[2022-11-06 10:47] LABS: TOTAL 25(OH) VITAMIN D 62.7 NG/ML (20.0-100.0)
== END ==
LOC: M LAB 09:07
PROVIDERS: ATTEND Physician Assistant Medical
DX: E83.52 Hypercalcemia (principal); E03.9 Hypothyroidism, unspecified

== ENCOUNTER → 2022-11-12 | Outpatient (CLI) | payer OTHER, MEDICAID ==
[2022-11-12 11:06] LABS: CHOLESTEROL RISK RATIO 3.13 (<5); HDL CHOLESTEROL 46.2 MG/DL (>40); LDL CHOLESTEROL 80.8 MG/DL (<100); NON-HDL-C 98.8 MG/DL
[2022-11-12 15:58] LABS: CALCIUM, 24 HOUR URINE 414.4 MG/24HR (42-353); CALCIUM, URINE 30.7 MG/DL
== END ==
LOC: M LAB 10:18
PROVIDERS: ATTEND Physician Assistant Medical
DX: Z13.220 Encounter for screening for lipoid disorders (principal); E21.0 Primary hyperparathyroidism

== ENCOUNTER → 2022-12-02 | Outpatient (CLI) | payer OTHER ==
[2022-12-02 10:06] LABS: BASO % 0.4 % (0.0-1.0); EOS # 0.2 10^3/uL (0.0-0.5); EOS % 3.5 % (0.0-3.0); HEMATOCRIT 37.1 % (36.0-47.0); HEMOGLOBIN 11.9 g/dl (12.0-15.5); LYMPH # 1.5 10^3/uL (1.5-5.0); LYMPH % 31.5 % (24.0-44.0); MEAN CORPUSCULAR HEMOGLOBIN 27.4 pg (27.0-33.0); MEAN CORPUSCULAR HGB CONC 32.1 g/dl (32.0-36.5); MEAN CORPUSCULAR VOLUME 85.5 fl (80.0-96.0); MONO # 0.3 10^3/uL (0.0-0.8); MONO % 6.5 % (2.0-8.0); NEUTROPHILS # 2.7 10^3/uL (1.5-8.5); NEUTROPHILS % 58.1 % (36.0-66.0); PLATELET COUNT, AUTOMATED 151 10^3/uL (150-450); RED BLOOD COUNT 4.34 10^6/uL (4.00-5.40); WHITE BLOOD COUNT 4.6 10^3/uL (4.0-10.0)
[2022-12-02 10:30] LABS: ALBUMIN 3.9 G/DL (3.2-5.2); ALKALINE PHOSPHATASE 112 U/L (46-116); ALT/SGPT 39 U/L (7.0-40); AST/SGOT 19 U/L (<34); BILIRUBIN,TOTAL 0.6 MG/DL (0.3-1.2); BLOOD UREA NITROGEN 9 MG/DL (9-23); CALCIUM LEVEL 11.2 MG/DL (8.5-10.1); CARBON DIOXIDE LEVEL 30 MMOL/L (20-31); CHLORIDE LEVEL 109 MMOL/L (98-107); CREATININE FOR GFR 0.65 MG/DL (0.55-1.30); GLOMERULAR FILTRATION RATE > 60.0 (>51); GLUCOSE, FASTING 84 MG/DL (60-100); IRON (FE) 76 UG/DL (50-170); MAGNESIUM LEVEL 2.1 MG/DL (1.8-2.4); PERCENT SATURATION 21.3 % (13.2-45.0); PHOSPHORUS LEVEL 3.2 MG/DL (2.5-4.9); POTASSIUM SERUM 4.4 MMOL/L (3.5-5.1); SODIUM LEVEL 144 MMOL/L (136-145); TOTAL 25(OH) VITAMIN D 58.9 NG/ML (20.0-100.0); TOTAL IRON BINDING CAPACITY 356 UG/DL (250-425); TOTAL PROTEIN 6.1 G/DL (5.7-8.2)
[2022-12-02 10:31] LABS: VITAMIN B12 LEVEL 889 PG/ML (211-911)
[2022-12-02 10:32] LABS: HEMATOCRIT 37.1 % (36.0-47.0)
[2022-12-02 11:14] LABS: HEMOGLOBIN A1c 4.7 % (4.0-6.0)
== END ==
LOC: M LAB 08:53
PROVIDERS: ATTEND Physician Assistant Surgical
DX: K91.2 Postsurgical malabsorption, not elsewhere classified (principal); E55.9 Vitamin D deficiency, unspecified; Z98.84 Bariatric surgery status; Z86.39 Personal history of other endocrine, nutritional and metabolic disease

== ENCOUNTER → 2022-12-05 | Outpatient (CLI) | payer OTHER | LOC: M WHC 13:42 | PROVIDERS: ATTEND Physician Assistant Medical | DX: E04.1 Nontoxic single thyroid nodule (principal); E21.0 Primary hyperparathyroidism; M85.851 Other specified disorders of bone density and structure, right thigh; M85.852 Other specified disorders of bone density and structure, left thigh ==

== ENCOUNTER → 2023-01-02 | Outpatient (CLI) | payer OTHER | LOC: M RAD 08:49 | PROVIDERS: ATTEND Physician Assistant Medical | DX: E21.0 Primary hyperparathyroidism (principal) | CPT/HCPCS: 78070; 78803; A9500 ==

== ENCOUNTER → 2023-01-06 | Outpatient (REF) | payer OTHER, MEDICAID ==
[2023-01-06 18:26] LABS: APPEARANCE, URINE CLEAR (CLEAR); BACTERIA, URINE AUTO NEGATIVE (NEGATIVE); BILIRUBIN, URINE AUTO NEGATIVE (NEGATIVE); BLOOD, URINE BLOOD NEGATIVE (NEGATIVE); COLOR, URINE STRAW (YELLOW); GLUCOSE, URINE (UA) AUTO NEGATIVE (NEGATIVE); KETONE, URINE AUTO TRACE mg/dL (NEGATIVE); LEUKOCYTE ESTERASE, URINE AUTO 2+ (NEGATIVE); NITRITE, URINE AUTO NEGATIVE (NEGATIVE); PROTEIN, URINE AUTO NEGATIVE (NEGATIVE); RBC, URINE AUTO 0 /HPF (0-3); SPECIFIC GRAVITY URINE AUTO 1.008 (1.002-1.035); SQUAMOUS EPITHELIAL CELL UR AU 0 /HPF (0-6); UROBILINOGEN, URINE AUTO 0.2 mg/dL (0.0-2.0); WBC, URINE AUTO 18 /HPF (0-3)
== END ==
LOC: M SFHCPLAZ 17:03
PROVIDERS: ATTEND Physician Assistant Medical
DX: R30.0 Dysuria (principal)

== ENCOUNTER → 2023-01-30 | Outpatient (CLI) | payer OTHER | LOC: M WHC 07:14 | PROVIDERS: ATTEND Physician Assistant Medical | DX: Z12.31 Encounter for screening mammogram for malignant neoplasm of breast (principal) ==

== ENCOUNTER → 2023-03-10 | Outpatient (CLI) | payer OTHER ==
[2023-03-10 13:53] LABS: BASO % 0.6 % (0.0-1.0); EOS # 0.2 10^3/uL (0.0-0.5); EOS % 3.8 % (0.0-3.0); HEMATOCRIT 36.9 % (36.0-47.0); HEMOGLOBIN 12.5 g/dl (12.0-15.5); LYMPH # 1.8 10^3/uL (1.5-5.0); LYMPH % 35.4 % (24.0-44.0); MEAN CORPUSCULAR HGB CONC 33.9 g/dl (32.0-36.5); MEAN CORPUSCULAR VOLUME 82.6 fl (80.0-96.0); MONO # 0.3 10^3/uL (0.0-0.8); MONO % 6.8 % (2.0-8.0); NEUTROPHILS # 2.6 10^3/uL (1.5-8.5); NEUTROPHILS % 53.2 % (36.0-66.0); PLATELET COUNT, AUTOMATED 168 10^3/uL (150-450); RED BLOOD COUNT 4.47 10^6/uL (4.00-5.40)
[2023-03-10 14:21] LABS: ALBUMIN 4.2 G/DL (3.2-5.2); ALKALINE PHOSPHATASE 116 U/L (46-116); ALT/SGPT 41 U/L (7.0-40); AST/SGOT 22 U/L (<34); BILIRUBIN,TOTAL 0.6 MG/DL (0.3-1.2); BLOOD UREA NITROGEN 14 MG/DL (9-23); CARBON DIOXIDE LEVEL 29 MMOL/L (20-31); CHLORIDE LEVEL 108 MMOL/L (98-107); CREATININE FOR GFR 0.59 MG/DL (0.55-1.30); GLOMERULAR FILTRATION RATE > 60.0 (>51); GLUCOSE, FASTING 70 MG/DL (60-100); POTASSIUM SERUM 4.6 MMOL/L (3.5-5.1); PTH INTACT 169.3 PG/ML (18.5-88.0); SODIUM LEVEL 142 MMOL/L (136-145); TOTAL PROTEIN 6.6 G/DL (5.7-8.2)
[2023-03-10 14:23] LABS: FERRITIN 77.2 NG/ML (7.3-270.7)
[2023-03-10 15:04] LABS: INR 1.07; PARTIAL THROMBOPLASTIN TIME 28.2 SECONDS (24.8-34.2); PROTHROMBIN TIME 13.6 SECONDS (12.5-14.5)
== END ==
LOC: M PLALAB 12:09
PROVIDERS: ATTEND Family Medicine
DX: E21.0 Primary hyperparathyroidism (principal); I25.10 Atherosclerotic heart disease of native coronary artery without angina pectoris

== ENCOUNTER → 2023-04-09 | Outpatient (CLI) | payer OTHER | LOC: M WUC 10:22 | PROVIDERS: ATTEND Student in an Organized Health Care Education/Training Program | DX: M19.012 Primary osteoarthritis, left shoulder (principal) ==

== ENCOUNTER → 2023-05-12 | Outpatient (CLI) | payer OTHER | LOC: M WHC 07:07 | PROVIDERS: ATTEND Internal Medicine Gastroenterology | DX: R94.5 Abnormal results of liver function studies (principal); R93.2 Abnormal findings on diagnostic imaging of liver and biliary tract ==

== ENCOUNTER → 2023-05-12 | Outpatient (CLI) | payer OTHER ==
[2023-05-12 10:55] LABS: BASO % 0.9 % (0.0-1.0); EOS # 0.2 10^3/uL (0.0-0.5); EOS % 3.5 % (0.0-3.0); HEMATOCRIT 37.8 % (36.0-47.0); HEMOGLOBIN 12.1 g/dl (12.0-15.5); LYMPH # 1.7 10^3/uL (1.5-5.0); LYMPH % 37.3 % (24.0-44.0); MEAN CORPUSCULAR HEMOGLOBIN 27.7 pg (27.0-33.0); MEAN CORPUSCULAR VOLUME 86.5 fl (80.0-96.0); MONO # 0.4 10^3/uL (0.0-0.8); MONO % 7.9 % (2.0-8.0); NEUTROPHILS # 2.3 10^3/uL (1.5-8.5); NEUTROPHILS % 50.4 % (36.0-66.0); PLATELET COUNT, AUTOMATED 173 10^3/uL (150-450); RED BLOOD COUNT 4.37 10^6/uL (4.00-5.40); WHITE BLOOD COUNT 4.6 10^3/uL (4.0-10.0)
[2023-05-12 11:26] LABS: ALKALINE PHOSPHATASE 102 U/L (46-116); ALT/SGPT 33 U/L (7.0-40); AST/SGOT 23 U/L (<34); BILIRUBIN,TOTAL 0.4 MG/DL (0.3-1.2); BLOOD UREA NITROGEN 11 MG/DL (9-23); CARBON DIOXIDE LEVEL 32 MMOL/L (20-31); CHLORIDE LEVEL 108 MMOL/L (98-107); CREATININE FOR GFR 0.57 MG/DL (0.55-1.30); GLOMERULAR FILTRATION RATE > 60.0 (>51); GLUCOSE, FASTING 83 MG/DL (60-100); POTASSIUM SERUM 4.4 MMOL/L (3.5-5.1); SODIUM LEVEL 144 MMOL/L (136-145); TOTAL PROTEIN 6.1 G/DL (5.7-8.2)
== END ==
LOC: M PLALAB 08:32
PROVIDERS: ATTEND Internal Medicine Gastroenterology
DX: R94.5 Abnormal results of liver function studies (principal)

== ENCOUNTER 2023-06-09 15:55 | Outpatient (CLI) | payer OTHER ==
[~2023-06-09] VITALS: Ht 162.6 cm; Wt 52.3 kg
[2023-06-09] MEDS ORDERED: ZOLEDRONIC ACID 5 MG in IV 1 EA IV ONE (16:25)
[2023-06-09 16:42] VITALS: BP 159/74; O2SAT 100
[2023-06-09 17:35] VITALS: BP 144/76; O2SAT 100
== END 2023-06-09 17:35 ==
LOC: M INFU 15:55
PROVIDERS: ATTEND Physician Assistant Medical
DX: M81.0 Age-related osteoporosis without current pathological fracture (principal); Z88.8 Allergy status to other drugs, medicaments and biological substances; Z88.5 Allergy status to narcotic agent
CPT/HCPCS: 96365; J3489

== ENCOUNTER 2023-06-14 13:12 | Emergency (ER) | payer OTHER ==
[~2023-06-14] VITALS: Ht 162.6 cm; Wt 52.3 kg
[~2023-06-14 13:12] MED LIST changes: -GABA600T4; +GABA600T4 PO; -OMEP-173; +OMEP-173 PO
[2023-06-14] MEDS ORDERED: NS 1,000 ML IV SCH (13:25)
[2023-06-14] MEDS ORDERED: PANTOPRAZOLE 40MG VIAL IV ONE (13:25)
[2023-06-14] MEDS ORDERED: METOCLOPRAMIDE INJ 10MG/2ML VIAL IV ONE (13:25)
[2023-06-14] MEDS ORDERED: LEVO75TA4 PO (13:29)
[2023-06-14 13:48] LABS: BASO % 0.2 % (0.0-1.0); EOS % 0.2 % (0.0-3.0); HEMATOCRIT 41.5 % (36.0-47.0); HEMOGLOBIN 13.8 g/dl (12.0-15.5); LYMPH # 0.8 10^3/uL (1.5-5.0); LYMPH % 17.5 % (24.0-44.0); MEAN CORPUSCULAR HEMOGLOBIN 27.9 pg (27.0-33.0); MEAN CORPUSCULAR HGB CONC 33.3 g/dl (32.0-36.5); MEAN CORPUSCULAR VOLUME 83.8 fl (80.0-96.0); MONO # 0.4 10^3/uL (0.0-0.8); MONO % 9.3 % (2.0-8.0); NEUTROPHILS # 3.4 10^3/uL (1.5-8.5); NEUTROPHILS % 72.6 % (36.0-66.0); PLATELET COUNT, AUTOMATED 197 10^3/uL (150-450); RED BLOOD COUNT 4.95 10^6/uL (4.00-5.40); WHITE BLOOD COUNT 4.7 10^3/uL (4.0-10.0)
[2023-06-14] MEDS: fentaNYL 100 MCG/2 ML INJECTION IV PRN ×2 (14:09→15:02)
[2023-06-14 14:18] LABS: LIPASE 40 U/L (12-53)
[2023-06-14] MEDS: GASTROGRAFIN SOLUTION 30ML PO SCH ×2 (14:19→15:01)
[2023-06-14 14:20] LABS: ALBUMIN 4.3 G/DL (3.2-5.2); ALKALINE PHOSPHATASE 121 U/L (46-116); ALT/SGPT 61 U/L (7.0-40); AST/SGOT 21 U/L (<34); BILIRUBIN,DIRECT 0.2 MG/DL (<0.4); BILIRUBIN,TOTAL 0.8 MG/DL (0.3-1.2); BLOOD UREA NITROGEN 9 MG/DL (9-23); CALCIUM LEVEL 7.8 MG/DL (8.5-10.1); CARBON DIOXIDE LEVEL 22 MMOL/L (20-31); CHLORIDE LEVEL 108 MMOL/L (98-107); CREATININE FOR GFR 0.42 MG/DL (0.55-1.30); GLOMERULAR FILTRATION RATE > 60.0 (>51); GLUCOSE, FASTING 136 MG/DL (60-100); SODIUM LEVEL 140 MMOL/L (136-145); TOTAL PROTEIN 7.3 G/DL (5.7-8.2)
[2023-06-14] MEDS ORDERED: ISOVUE-370 76% 100ML VIAL As Ordered ONE (16:16)
[2023-06-14] MEDS ORDERED: PROT1TAB2 PO (16:59)
[2023-06-14] MEDS ORDERED: SUCR1SS PO (16:59)
[2023-06-14] MEDS ORDERED: SUCRALFATE SUSP 1GM/10ML UD PO ONE (17:00)
[2023-06-14 18:27] VITALS: BP 159/75; TEMP 98.3; O2SAT 97
== END 2023-06-14 18:41 | disposition home or self-care (01) ==
LOC: M ED 14:18
DX: R10.9 Unspecified abdominal pain (principal); K21.9 Gastro-esophageal reflux disease without esophagitis; K58.9 Irritable bowel syndrome, unspecified; Z87.442 Personal history of urinary calculi; Z98.84 Bariatric surgery status; K75.81 Nonalcoholic steatohepatitis (NASH); Z79.899 Other long term (current) drug therapy; Z88.8 Allergy status to other drugs, medicaments and biological substances; Z88.5 Allergy status to narcotic agent
CPT/HCPCS: 74177; 80048; 80076; 82330; 83605; 83690; 85025; 93005; 93041; 96361; 96374; 96375; 96376; 99285; C9113; J2765; J3010; Q9963; Q9967

== ENCOUNTER → 2023-09-15 | Outpatient (CLI) | payer OTHER ==
[~2023-09-15] MED LIST changes: +LEVO75TA4 PO; +PROT1TAB2 PO; +SUCR1SS PO
[2023-09-15 14:27] LABS: BASO % 0.4 % (0.0-1.0); EOS # 0.2 10^3/uL (0.0-0.5); EOS % 3.5 % (0.0-3.0); HEMATOCRIT 38.1 % (36.0-47.0); HEMOGLOBIN 12.5 g/dl (12.0-15.5); LYMPH # 1.5 10^3/uL (1.5-5.0); LYMPH % 33.1 % (24.0-44.0); MEAN CORPUSCULAR HEMOGLOBIN 27.7 pg (27.0-33.0); MEAN CORPUSCULAR HGB CONC 32.8 g/dl (32.0-36.5); MEAN CORPUSCULAR VOLUME 84.5 fl (80.0-96.0); MONO # 0.4 10^3/uL (0.0-0.8); MONO % 8.2 % (2.0-8.0); NEUTROPHILS # 2.5 10^3/uL (1.5-8.5); NEUTROPHILS % 54.6 % (36.0-66.0); PLATELET COUNT, AUTOMATED 180 10^3/uL (150-450); RED BLOOD COUNT 4.51 10^6/uL (4.00-5.40); WHITE BLOOD COUNT 4.6 10^3/uL (4.0-10.0)
[2023-09-15 14:29] LABS: HEMATOCRIT 37.9 % (36.0-47.0)
[2023-09-15 14:35] LABS: FERRITIN 56.5 NG/ML (7.3-270.7); THYROID STIMULATING HORMONE 1.539 uIU/ML (0.55-4.78)
[2023-09-15 14:36] LABS: FREE T4 1.05 NG/DL (0.89-1.76)
== END ==
LOC: M PLALAB 09:29
PROVIDERS: ATTEND Physician Assistant Medical
DX: E04.1 Nontoxic single thyroid nodule (principal); Z98.84 Bariatric surgery status; R10.13 Epigastric pain; M62.838 Other muscle spasm

== ENCOUNTER → 2023-11-11 | Outpatient (CLI) | payer MEDICAID, OTHER ==
[2023-11-11 12:18] LABS: BASO % 0.8 % (0.0-1.0); EOS # 0.1 10^3/uL (0.0-0.5); EOS % 2.5 % (0.0-3.0); HEMATOCRIT 37.6 % (36.0-47.0); HEMOGLOBIN 12.2 g/dl (12.0-15.5); LYMPH # 1.8 10^3/uL (1.5-5.0); LYMPH % 36.7 % (24.0-44.0); MEAN CORPUSCULAR HEMOGLOBIN 27.8 pg (27.0-33.0); MEAN CORPUSCULAR HGB CONC 32.4 g/dl (32.0-36.5); MEAN CORPUSCULAR VOLUME 85.6 fl (80.0-96.0); MONO # 0.4 10^3/uL (0.0-0.8); NEUTROPHILS # 2.5 10^3/uL (1.5-8.5); NEUTROPHILS % 51.8 % (36.0-66.0); PLATELET COUNT, AUTOMATED 184 10^3/uL (150-450); RED BLOOD COUNT 4.39 10^6/uL (4.00-5.40); WHITE BLOOD COUNT 4.9 10^3/uL (4.0-10.0)
[2023-11-11 12:39] LABS: ALBUMIN 3.8 G/DL (3.2-5.2); ALKALINE PHOSPHATASE 77 U/L (46-116); ALT/SGPT 33 U/L (7.0-40); AST/SGOT 20 U/L (<34); BILIRUBIN,TOTAL 0.6 MG/DL (0.3-1.2); BLOOD UREA NITROGEN 9 MG/DL (9-23); CALCIUM LEVEL 9.3 MG/DL (8.5-10.1); CARBON DIOXIDE LEVEL 31 MMOL/L (20-31); CHLORIDE LEVEL 108 MMOL/L (98-107); CHOLESTEROL LEVEL 175 MG/DL (<200); CHOLESTEROL RISK RATIO 2.73 (<5); GLOMERULAR FILTRATION RATE > 60.0 (>51); GLUCOSE, FASTING 81 MG/DL (60-100); LDL CHOLESTEROL 98.4 MG/DL (<100); POTASSIUM SERUM 4.1 MMOL/L (3.5-5.1); PTH INTACT 129.6 PG/ML (18.5-88.0); SODIUM LEVEL 144 MMOL/L (136-145); TOTAL PROTEIN 6.5 G/DL (5.7-8.2); TRIGLYCERIDES LEVEL 63 MG/DL (<150)
[2023-11-11 12:40] LABS: FERRITIN 67.4 NG/ML (7.3-270.7); TOTAL 25(OH) VITAMIN D 34.9 NG/ML (20.0-100.0)
== END ==
LOC: M LAB 11:12
PROVIDERS: ATTEND Physician Assistant Medical
DX: I25.10 Atherosclerotic heart disease of native coronary artery without angina pectoris (principal); E21.0 Primary hyperparathyroidism; R10.13 Epigastric pain; Z98.84 Bariatric surgery status

== ENCOUNTER → 2024-01-26 | Outpatient (CLI) | payer OTHER ==
[~2024-01-26] MED LIST changes: +ONDA-282 PO; -ONDA4TAB6 PO
[2024-01-26 09:52] LABS: ALBUMIN 3.7 G/DL (3.2-5.2); ALKALINE PHOSPHATASE 70 U/L (46-116); ALT/SGPT 45 U/L (7.0-40); AST/SGOT 22 U/L (<34); BILIRUBIN,TOTAL 0.5 MG/DL (0.3-1.2); BLOOD UREA NITROGEN 10 MG/DL (9-23); CALCIUM LEVEL 8.7 MG/DL (8.5-10.1); CARBON DIOXIDE LEVEL 32 MMOL/L (20-31); CHLORIDE LEVEL 110 MMOL/L (98-107); CREATININE FOR GFR 0.54 MG/DL (0.55-1.30); GLOMERULAR FILTRATION RATE > 60.0 (>51); GLUCOSE, FASTING 90 MG/DL (60-100); POTASSIUM SERUM 4.1 MMOL/L (3.5-5.1); SODIUM LEVEL 145 MMOL/L (136-145); TOTAL PROTEIN 5.9 G/DL (5.7-8.2)
[2024-01-26 09:54] LABS: FREE T4 0.93 NG/DL (0.89-1.76); THYROID STIMULATING HORMONE 2.489 uIU/ML (0.55-4.78)
[2024-01-26 16:45] LABS: TOTAL 25(OH) VITAMIN D 35.3 NG/ML (20.0-100.0)
[2024-01-26 16:57] LABS: PTH INTACT 114.9 PG/ML (18.5-88.0)
== END ==
LOC: M LAB 08:42
PROVIDERS: ATTEND Physician Assistant Medical
DX: E21.0 Primary hyperparathyroidism (principal); E03.9 Hypothyroidism, unspecified; E83.52 Hypercalcemia

== ENCOUNTER → 2024-02-16 | Outpatient (CLI) | payer OTHER | LOC: M WHC 12:37 | PROVIDERS: ATTEND Physician Assistant Medical | DX: Z12.31 Encounter for screening mammogram for malignant neoplasm of breast (principal); R92.333 Mammographic heterogeneous density, bilateral breasts ==

== ENCOUNTER → 2024-02-18 | Outpatient (CLI) | payer OTHER ==
[2024-02-18 15:17] LABS: CALCIUM LEVEL 9.1 MG/DL (8.5-10.1); PTH INTACT 178.3 PG/ML (18.5-88.0)
[2024-02-18 15:21] LABS: FREE T4 0.93 NG/DL (0.89-1.76)
[2024-02-18 15:22] LABS: FOLLICLE STIMULATING HORMONE 99.2 mIU/ML; LUTEINIZING HORMONE 48.9 mIU/ML; THYROID STIMULATING HORMONE 2.92 uIU/ML (0.55-4.78)
[2024-02-18 15:23] LABS: TOTAL 25(OH) VITAMIN D 28.9 NG/ML (20.0-100.0)
[2024-02-19 09:06] LABS: ALBUMIN 4.1 G/DL (3.2-5.2)
== END ==
LOC: M PLALAB 12:04
PROVIDERS: ATTEND Physician Assistant Medical
DX: E34.9 Endocrine disorder, unspecified (principal)

== ENCOUNTER → 2024-03-03 | Outpatient (CLI) | payer OTHER | LOC: M WHC 10:18 | PROVIDERS: ATTEND Physician Assistant Medical | DX: N60.02 Solitary cyst of left breast (principal); R92.323 Mammographic fibroglandular density, bilateral breasts ==

== ENCOUNTER → 2024-03-03 | Outpatient (CLI) | payer OTHER | LOC: M WHC 10:16 | PROVIDERS: ATTEND Obstetrics & Gynecology | DX: N94.10 Unspecified dyspareunia (principal) ==

== ENCOUNTER → 2024-03-10 | Outpatient (CLI) | payer OTHER | LOC: M PLAIMG 07:35 | PROVIDERS: ATTEND Physician Assistant Medical | DX: M50.122 Cervical disc disorder at C5-C6 level with radiculopathy (principal) ==

== ENCOUNTER → 2024-04-27 | Outpatient (CLI) | payer OTHER ==
[~2024-04-27] MED LIST changes: +GABA-1490 PO; -GABA600T4 PO
[2024-04-27 12:45] LABS: TOTAL 25(OH) VITAMIN D 43.1 NG/ML (20.0-100.0)
[2024-04-27 12:46] LABS: ALBUMIN 3.8 G/DL (3.2-5.2); ALKALINE PHOSPHATASE 70 U/L (46-116); ALT/SGPT 53 U/L (7.0-40); AST/SGOT 37 U/L (<34); BILIRUBIN,TOTAL 0.6 MG/DL (0.3-1.2); BLOOD UREA NITROGEN 10 MG/DL (9-23); CALCIUM LEVEL 9.2 MG/DL (8.5-10.1); CARBON DIOXIDE LEVEL 31 MMOL/L (20-31); CHLORIDE LEVEL 109 MMOL/L (98-107); GLOMERULAR FILTRATION RATE > 60.0 (>51); GLUCOSE, FASTING 86 MG/DL (60-100); PTH INTACT 130.5 PG/ML (18.5-88.0); SODIUM LEVEL 144 MMOL/L (136-145); TOTAL PROTEIN 6.4 G/DL (5.7-8.2)
== END ==
LOC: M LAB 11:18
PROVIDERS: ATTEND Physician Assistant Medical
DX: N25.81 Secondary hyperparathyroidism of renal origin (principal)

== ENCOUNTER 2024-06-06 09:30 | Emergency (ER) | payer OTHER ==
[~2024-06-06] VITALS: Ht 162.6 cm; Wt 56.8 kg
[~2024-06-06 09:30] MED LIST changes: -ALBU8.5H; +ALBU8.5H PO; -EPIN0.3I11; +EPIN0.3I11 SC; -TIZA2CAP; +TIZA2CAP PO
[2024-06-06] MEDS ORDERED: ISOVUE-370 76% 100ML VIAL As Ordered ONE (10:11)
[2024-06-06 10:26] LABS: BASO % 0.5 % (0.0-1.0); EOS # 0.2 10^3/uL (0.0-0.5); EOS % 3.6 % (0.0-3.0); HEMOGLOBIN 12.4 g/dl (12.0-15.5); LYMPH # 1.4 10^3/uL (1.5-5.0); LYMPH % 33.6 % (24.0-44.0); MEAN CORPUSCULAR HEMOGLOBIN 27.8 pg (27.0-33.0); MEAN CORPUSCULAR HGB CONC 33.5 g/dl (32.0-36.5); MONO # 0.4 10^3/uL (0.0-0.8); MONO % 8.8 % (2.0-8.0); NEUTROPHILS # 2.2 10^3/uL (1.5-8.5); NEUTROPHILS % 52.3 % (36.0-66.0); PLATELET COUNT, AUTOMATED 188 10^3/uL (150-450); RED BLOOD COUNT 4.46 10^6/uL (4.00-5.40); WHITE BLOOD COUNT 4.2 10^3/uL (4.0-10.0)
[2024-06-06 10:37] LABS: INR 0.89; PARTIAL THROMBOPLASTIN TIME 22.6 SECONDS (24.8-34.2); PROTHROMBIN TIME 12.4 SECONDS (12.5-14.5)
[2024-06-06] MEDS: ACETAMINOPHEN *IV* 1,000 MG in IV 1 EA IV ONE (10:44)
[2024-06-06 10:57] LABS: ALBUMIN 4.2 G/DL (3.2-5.2); ALKALINE PHOSPHATASE 75 U/L (35-104); ALT/SGPT 51 U/L (7.0-40); AST/SGOT 39 U/L (<34); BILIRUBIN,DIRECT 0.2 MG/DL (<0.4); BILIRUBIN,TOTAL 0.5 MG/DL (0.3-1.2); BLOOD UREA NITROGEN 10 MG/DL (9-23); CALCIUM LEVEL 10.1 MG/DL (8.5-10.1); CARBON DIOXIDE LEVEL 29 MMOL/L (20-31); CHLORIDE LEVEL 110 MMOL/L (98-107); CREATININE FOR GFR 0.58 MG/DL (0.55-1.30); GLOMERULAR FILTRATION RATE > 60.0 (>51); GLUCOSE, FASTING 87 MG/DL (60-100); POTASSIUM SERUM 3.7 MMOL/L (3.5-5.1); SODIUM LEVEL 144 MMOL/L (136-145); TOTAL PROTEIN 6.8 G/DL (5.7-8.2)
[2024-06-06] MEDS: oxyCODONE 5MG TAB PO ONE (11:41)
[2024-06-06] MEDS ORDERED: HOME MED LIST COMPLETE! XX SCH (12:00)
[2024-06-06] MEDS ORDERED: EQL400CA9 PO (12:00)
[2024-06-06] MEDS ORDERED: CYAN500T3 PO (12:00)
[2024-06-06] MEDS ORDERED: FLUT12AE2 INH (12:00)
[2024-06-06] MEDS ORDERED: ESTR10TA VG (12:00)
[2024-06-06] MEDS ORDERED: GABA-1172 PO (12:00)
[2024-06-06] MEDS ORDERED: MULT-40 PO (12:00)
[2024-06-06] MEDS ORDERED: OMEP40CA5 PO (12:00)
[2024-06-06] MEDS: D5W/0.45% SODIUM CHLORIDE 1,000 ML IV ONE (16:15)
[2024-06-06 16:30] VITALS: BP 155/79; O2SAT 97
[2024-06-06 16:45] VITALS: TEMP 99.1
== END 2024-06-06 17:03 | disposition short-term general hospital (02) ==
LOC: M ED 09:30
DX: M50.00 Cervical disc disorder with myelopathy, unspecified cervical region (principal); K58.9 Irritable bowel syndrome, unspecified; J45.909 Unspecified asthma, uncomplicated; Z98.84 Bariatric surgery status; M25.78 Osteophyte, vertebrae; Z79.899 Other long term (current) drug therapy; Z88.5 Allergy status to narcotic agent; Z88.8 Allergy status to other drugs, medicaments and biological substances
CPT/HCPCS: 70450; 70496; 70498; 70551; 71045; 72141; 80047; 80048; 80076; 85025; 85610; 85730; 93005; 93041; 94760; 96365; 96375; 99285; J0131; Q9967

== ENCOUNTER 2024-06-10 13:26 | Outpatient (CLI) | payer OTHER ==
[~2024-06-10] VITALS: Ht 162.6 cm; Wt 56.8 kg
[~2024-06-10 13:26] MED LIST changes: +CYAN500T3 PO; +EQL400CA9 PO; +ESTR10TA VG; +FLUT12AE2 INH; +GABA-1172 PO; +MULT-40 PO; +OMEP40CA5 PO
[2024-06-10 13:40] VITALS: BP 143/84; O2SAT 98
[2024-06-10] MEDS: ZOLEDRONIC ACID 5 MG in IV 1 EA IV ONE (14:02)
[2024-06-10 14:35] VITALS: BP 140/70; O2SAT 99
== END 2024-06-10 14:35 ==
LOC: M INFU 13:26
PROVIDERS: ATTEND Physician Assistant Medical
DX: M81.0 Age-related osteoporosis without current pathological fracture (principal); Z88.5 Allergy status to narcotic agent; Z88.8 Allergy status to other drugs, medicaments and biological substances
CPT/HCPCS: 96413; J3489

== ENCOUNTER → 2024-08-30 | Outpatient (REF) | payer MEDICAID, OTHER ==
[2024-08-30 11:18] LABS: AMORPHOUS SEDIMENT LARGE (NEGATIVE); APPEARANCE, URINE TURBID (CLEAR); BACTERIA, URINE AUTO 1+ (NEGATIVE); BILIRUBIN, URINE AUTO NEGATIVE (NEGATIVE); BLOOD, URINE BLOOD 2+ (NEGATIVE); COLOR, URINE AMBER (YELLOW); GLUCOSE, URINE (UA) AUTO NEGATIVE (NEGATIVE); KETONE, URINE AUTO TRACE mg/dL (NEGATIVE); LEUKOCYTE ESTERASE, URINE AUTO 3+ (NEGATIVE); MUCUS, URINE SMALL (NEGATIVE); NITRITE, URINE AUTO NEGATIVE (NEGATIVE); PROTEIN, URINE AUTO 2+ mg/dL (NEGATIVE); RBC, URINE AUTO 67 /HPF (0-3); SPECIFIC GRAVITY URINE AUTO 1.028 (1.002-1.035); SQUAMOUS EPITHELIAL CELL UR AU 1 /HPF (0-6); WBC, URINE AUTO TNTC /HPF (0-3)
== END ==
LOC: M SFHCPLAZ 09:42
PROVIDERS: ATTEND Physician Assistant Medical
DX: R30.0 Dysuria (principal)

== ENCOUNTER → 2024-09-21 | Outpatient (CLI) | payer OTHER | LOC: M WHC 07:29 | PROVIDERS: ATTEND Physician Assistant Medical | DX: R92.8 Other abnormal and inconclusive findings on diagnostic imaging of breast (principal); R92.332 Mammographic heterogeneous density, left breast; N63.21 Unspecified lump in the left breast, upper outer quadrant ==

== ENCOUNTER → 2024-12-10 | Outpatient (CLI) | payer OTHER ==
[2024-12-10 13:26] LABS: BASO % 0.3 % (0.0-1.0); EOS # 0.1 10^3/uL (0.0-0.5); EOS % 2.1 % (0.0-3.0); HEMATOCRIT 36.6 % (36.0-47.0); HEMOGLOBIN 12.1 g/dl (12.0-15.5); LYMPH % 32.2 % (24.0-44.0); MEAN CORPUSCULAR HEMOGLOBIN 27.6 pg (27.0-33.0); MEAN CORPUSCULAR HGB CONC 33.1 g/dl (32.0-36.5); MEAN CORPUSCULAR VOLUME 83.4 fl (80.0-96.0); MONO # 0.5 10^3/uL (0.0-0.8); MONO % 8.2 % (2.0-8.0); NEUTROPHILS # 3.5 10^3/uL (1.5-8.5); PLATELET COUNT, AUTOMATED 217 10^3/uL (150-450); RED BLOOD COUNT 4.39 10^6/uL (4.00-5.40); WHITE BLOOD COUNT 6.1 10^3/uL (4.0-10.0)
[2024-12-10 13:28] LABS: HEMATOCRIT 36.3 % (36.0-47.0)
[2024-12-10 14:54] LABS: IRON (FE) 69 UG/DL (50-170)
[2024-12-10 14:55] LABS: ALBUMIN 4.1 G/DL (3.2-5.2); ALKALINE PHOSPHATASE 65 U/L (35-104); ALT/SGPT 34 U/L (7.0-40); AST/SGOT 24 U/L (<34); BILIRUBIN,TOTAL 0.4 MG/DL (0.3-1.2); BLOOD UREA NITROGEN 9 MG/DL (9-23); CALCIUM LEVEL 9.4 MG/DL (8.5-10.1); CARBON DIOXIDE LEVEL 30 MMOL/L (20-31); CHLORIDE LEVEL 106 MMOL/L (98-107); CHOLESTEROL LEVEL 170 MG/DL (<200); CHOLESTEROL RISK RATIO 2.69 (<5); CREATININE FOR GFR 0.58 MG/DL (0.55-1.30); GLOMERULAR FILTRATION RATE > 90.0 (>51); GLUCOSE, FASTING 59 MG/DL (60-100); HDL CHOLESTEROL 63.1 MG/DL (>40); LDL CHOLESTEROL 93.9 MG/DL (<100); NON-HDL-C 106.9 MG/DL; POTASSIUM SERUM 3.9 MMOL/L (3.5-5.1); PTH INTACT 121.6 PG/ML (18.5-88.0); SODIUM LEVEL 145 MMOL/L (136-145); TOTAL 25(OH) VITAMIN D 37.7 NG/ML (20.0-100.0); TOTAL PROTEIN 6.5 G/DL (5.7-8.2); TRIGLYCERIDES LEVEL 65 MG/DL (<150)
[2024-12-10 14:56] LABS: FERRITIN 52.6 NG/ML (7.3-270.7); VITAMIN B12 LEVEL 1152 PG/ML (211-911)
[2024-12-10 14:57] LABS: FREE T4 1.01 NG/DL (0.89-1.76)
== END ==
LOC: M LAB 12:49
PROVIDERS: ATTEND Physician Assistant Medical
DX: R10.13 Epigastric pain (principal); Z98.84 Bariatric surgery status; Z13.220 Encounter for screening for lipoid disorders; E21.0 Primary hyperparathyroidism; I25.84 Coronary atherosclerosis due to calcified coronary lesion; K59.00 Constipation, unspecified; E04.1 Nontoxic single thyroid nodule

== ENCOUNTER → 2025-02-01 | Outpatient (REF) | payer OTHER, MEDICAID ==
[2025-02-01 18:42] LABS: APPEARANCE, URINE HAZY (CLEAR); BACTERIA, URINE AUTO NEGATIVE (NEGATIVE); BILIRUBIN, URINE AUTO NEGATIVE (NEGATIVE); BLOOD, URINE BLOOD 1+ (NEGATIVE); CALCIUM OXALATE CRYSTALS MODERATE; GLUCOSE, URINE (UA) AUTO NEGATIVE (NEGATIVE); KETONE, URINE AUTO NEGATIVE (NEGATIVE); LEUKOCYTE ESTERASE, URINE AUTO 3+ (NEGATIVE); MUCUS, URINE SMALL (NEGATIVE); NITRITE, URINE AUTO NEGATIVE (NEGATIVE); PROTEIN, URINE AUTO 1+ mg/dL (NEGATIVE); RBC, URINE AUTO 11 /HPF (0-3); SPECIFIC GRAVITY URINE AUTO 1.020 (1.002-1.035); SQUAMOUS EPITHELIAL CELL UR AU 0 /HPF (0-6); UROBILINOGEN, URINE AUTO 4.0 mg/dL (0.0-2.0); WBC, URINE AUTO 167 /HPF (0-3)
== END ==
LOC: M SFHCPLAZ 17:32
DX: R30.0 Dysuria (principal)

== ENCOUNTER → 2025-02-11 | Outpatient (CLI) | payer OTHER ==
[2025-02-11 16:18] LABS: FREE T4 1.16 NG/DL (0.89-1.76)
== END ==
LOC: M PLALAB 12:23
PROVIDERS: ATTEND Physician Assistant Medical
DX: E03.9 Hypothyroidism, unspecified (principal)

== ENCOUNTER → 2025-02-14 | Outpatient (REF) | payer OTHER ==
[2025-02-14 15:25] LABS: APPEARANCE, URINE CLEAR (CLEAR); BACTERIA, URINE AUTO NEGATIVE (NEGATIVE); BILIRUBIN, URINE AUTO NEGATIVE (NEGATIVE); BLOOD, URINE BLOOD NEGATIVE (NEGATIVE); GLUCOSE, URINE (UA) AUTO NEGATIVE (NEGATIVE); KETONE, URINE AUTO NEGATIVE (NEGATIVE); LEUKOCYTE ESTERASE, URINE AUTO NEGATIVE (NEGATIVE); NITRITE, URINE AUTO NEGATIVE (NEGATIVE); PROTEIN, URINE AUTO NEGATIVE (NEGATIVE); RBC, URINE AUTO 0 /HPF (0-3); SPECIFIC GRAVITY URINE AUTO 1.006 (1.002-1.035); SQUAMOUS EPITHELIAL CELL UR AU 0 /HPF (0-6); UROBILINOGEN, URINE AUTO 0.2 mg/dL (0.0-2.0); WBC, URINE AUTO 2 /HPF (0-3)
== END ==
LOC: M SFHCPLAZ 15:02
PROVIDERS: ATTEND Physician Assistant Medical
DX: N30.01 Acute cystitis with hematuria (principal)

== ENCOUNTER → 2025-02-17 | Outpatient (REF) | payer OTHER ==
[2025-02-17 11:42] LABS: APPEARANCE, URINE CLOUDY (CLEAR); BACTERIA, URINE AUTO 1+ (NEGATIVE); BILIRUBIN, URINE AUTO NEGATIVE (NEGATIVE); BLOOD, URINE BLOOD 3+ (NEGATIVE); GLUCOSE, URINE (UA) AUTO NEGATIVE (NEGATIVE); KETONE, URINE AUTO TRACE mg/dL (NEGATIVE); LEUKOCYTE ESTERASE, URINE AUTO 3+ (NEGATIVE); MUCUS, URINE SMALL (NEGATIVE); NITRITE, URINE AUTO NEGATIVE (NEGATIVE); PROTEIN, URINE AUTO 2+ mg/dL (NEGATIVE); RBC, URINE AUTO TNTC /HPF (0-3); SPECIFIC GRAVITY URINE AUTO 1.021 (1.002-1.035); SQUAMOUS EPITHELIAL CELL UR AU 2 /HPF (0-6); UROBILINOGEN, URINE AUTO 2.0 mg/dL (0.0-2.0); WBC, URINE AUTO TNTC /HPF (0-3)
== END ==
LOC: M SFHCPLAZ 11:17
PROVIDERS: ATTEND Physician Assistant Medical
DX: R30.0 Dysuria (principal)

== ENCOUNTER → 2025-03-08 | Outpatient (CLI) | payer OTHER | LOC: M RAD 10:03 | PROVIDERS: ATTEND Neurological Surgery | DX: M50.121 Cervical disc disorder at C4-C5 level with radiculopathy (principal) ==

== ENCOUNTER → 2025-04-12 | Outpatient (REF) | payer OTHER ==
[2025-04-12 10:31] LABS: APPEARANCE, URINE CLOUDY (CLEAR); BACTERIA, URINE AUTO NEGATIVE (NEGATIVE); BILIRUBIN, URINE AUTO NEGATIVE (NEGATIVE); BLOOD, URINE BLOOD 1+ (NEGATIVE); GLUCOSE, URINE (UA) AUTO NEGATIVE (NEGATIVE); KETONE, URINE AUTO NEGATIVE (NEGATIVE); LEUKOCYTE ESTERASE, URINE AUTO 2+ (NEGATIVE); NITRITE, URINE AUTO NEGATIVE (NEGATIVE); PROTEIN, URINE AUTO 2+ mg/dL (NEGATIVE); RBC, URINE AUTO 49 /HPF (0-3); SPECIFIC GRAVITY URINE AUTO 1.023 (1.002-1.035); SQUAMOUS EPITHELIAL CELL UR AU 2 /HPF (0-6); UROBILINOGEN, URINE AUTO 0.2 mg/dL (0.0-2.0); WBC, URINE AUTO TNTC /HPF (0-3)
== END ==
LOC: M SFHCPLAZ 09:57
PROVIDERS: ATTEND Physician Assistant Medical
DX: R30.0 Dysuria (principal)

== ENCOUNTER → 2025-05-02 | Outpatient (CLI) | payer OTHER ==
[2025-05-02 12:16] LABS: FREE T4 1.4 NG/DL (0.89-1.76)
== END ==
LOC: M LAB 10:54
PROVIDERS: ATTEND Physician Assistant Medical
DX: E03.9 Hypothyroidism, unspecified (principal)

== ENCOUNTER → 2025-05-03 | Outpatient (CLI) | payer OTHER ==
[2025-05-03 14:55] LABS: ALT/SGPT 35 U/L (7.0-40); AST/SGOT 27 U/L (<34); CALCIUM LEVEL 8.7 MG/DL (8.5-10.1); CARBON DIOXIDE LEVEL 30 MMOL/L (20-31); CHLORIDE LEVEL 107 MMOL/L (98-107); CREATININE FOR GFR 0.53 MG/DL (0.55-1.30); GLOMERULAR FILTRATION RATE > 90.0 (>51); POTASSIUM SERUM 4.0 MMOL/L (3.5-5.1); SODIUM LEVEL 146 MMOL/L (136-145)
== END ==
LOC: M LAB 07:56
PROVIDERS: ATTEND Physician Assistant Medical
DX: E83.52 Hypercalcemia (principal)

== ENCOUNTER → 2025-05-10 | Outpatient (CLI) | payer OTHER | LOC: M WHC 07:10 | PROVIDERS: ATTEND Physician Assistant Medical | DX: M85.851 Other specified disorders of bone density and structure, right thigh (principal); Z12.31 Encounter for screening mammogram for malignant neoplasm of breast ==

== ENCOUNTER 2025-06-02 08:13 | Outpatient (CLI) | payer OTHER ==
[~2025-06-02] VITALS: Ht 160 cm; Wt 56.3 kg
[2025-06-02 08:30] VITALS: BP 160/82; O2SAT 98
[2025-06-02] MEDS: ZOLEDRONIC ACID 5 MG in IV 1 EA IV ONE (08:38)
[2025-06-02 09:30] VITALS: BP 136/85; O2SAT 95
== END 2025-06-02 09:15 ==
LOC: M INFU 08:13
PROVIDERS: ATTEND Physician Assistant Medical
DX: M81.0 Age-related osteoporosis without current pathological fracture (principal); E21.0 Primary hyperparathyroidism; Z88.5 Allergy status to narcotic agent; Z88.8 Allergy status to other drugs, medicaments and biological substances
CPT/HCPCS: 96365; J3489

== ENCOUNTER → 2025-07-01 | Outpatient (CLI) | payer OTHER ==
[2025-07-01 14:16] LABS: FREE T4 1.2 NG/DL (0.89-1.76)
== END ==
LOC: M LAB 12:56
PROVIDERS: ATTEND Physician Assistant Medical
DX: E03.9 Hypothyroidism, unspecified (principal)